=== PATIENT | male | born 1990 | race Caucasian/White ===

== ENCOUNTER 2017-09-22 21:02 | Emergency (ER) | payer BC ==
[~2017-09-22] VITALS: Ht 162.6 cm; Wt 64.0 kg
[2017-09-22] MEDS ORDERED: MAG HYDROX/AL HYDROX/SIMETH 30 ML UDC ONE (21:09)
[2017-09-22] MEDS ORDERED: ONDANSETRON 4 MG TAB.RAPDIS ONE (21:09)
--- NOTE | 2017-09-22 21:12 | NUR ---
PT MEDICATED ORDERED.
[2017-09-22] MEDS ORDERED: MAG HYDROX/AL HYDROX/SIMETH 30 ML UDC PO ONE (21:30)
[2017-09-22] MEDS ORDERED: ONDANSETRON 4 MG TAB.RAPDIS SL ONE (21:30)
--- NOTE | 2017-09-22 22:25 | NUR ---
ASSUMED D/C CARE OF PT AT THIS TIME ON BEHALF OF PRIMARY NURSE ED. Patient discharged to home in stable condition. Written and verbal after care instructions given. Patient verbalizes understanding of instruction. Ambulatory with a steady gait
[2017-09-22 22:26] VITALS: BP 115/65
== END 2017-09-22 22:27 | disposition home or self-care (01) ==
LOC: ER 21:06
DX: R10.84 Generalized abdominal pain (principal); F10.10 Alcohol abuse, uncomplicated; F17.200 Nicotine dependence, unspecified, uncomplicated; Z60.2 Problems related to living alone; Z98.890 Other specified postprocedural states
CPT/HCPCS: 99283; 99406; A4606; Q0162; Z7610